=== PATIENT | female | born 1955 | race Caucasian/White ===

== ENCOUNTER 2016-09-29 09:01 | Outpatient (CLI) | payer MEDICARE | END 2016-09-29 09:02 | disposition home or self-care (01) | DX: Z00.00 Encounter for general adult medical examination without abnormal findings (principal); E55.9 Vitamin D deficiency, unspecified; E78.2 Mixed hyperlipidemia; Z79.899 Other long term (current) drug therapy ==

== ENCOUNTER 2016-10-11 09:43 | Outpatient (CLI) | payer MEDICARE | END 2016-10-11 09:44 | disposition home or self-care (01) | DX: Z12.31 Encounter for screening mammogram for malignant neoplasm of breast (principal); Z80.3 Family history of malignant neoplasm of breast ==

== ENCOUNTER 2017-10-25 09:49 | Outpatient (CLI) | payer MEDICARE ==
[2017-10-25 10:06] LABS: BASOPHILS # (AUTO) 0.1 10^3/uL (0.0-0.1); BASOPHILS % (AUTO) 1.1 %; EOSINOPHILS # (AUTO) 0.3 10^3/uL (0.0-0.7); EOSINOPHILS % (AUTO) 2.2 %; LYMPHOCYTES # (AUTO) 2.5 10^3/uL (1.5-3.5); LYMPHOCYTES % (AUTO) 21.1 %; MEAN CORPUSCULAR HEMOGLOBIN 30.8 pg (27.0-31.0); MEAN CORPUSCULAR HGB CONC 33.5 g/dL (32.0-36.0); MEAN PLATELET VOLUME 8.7 fL (7.9-10.8); MONOCYTES # (AUTO) 0.7 10^3/uL (0.0-1.0); MONOCYTES % (AUTO) 5.7 %; NEUTROPHILS # (AUTO) 8.4 10^3/uL (1.5-6.6); NEUTROPHILS % (AUTO) 69.9 %; PLT - PLATELET COUNT 283 10^3/uL (130-450); RED BLOOD COUNT 4.86 10^6/uL (4.20-5.40); RED CELL DISTRIBUTION WIDTH 13.1 % (12.0-15.0); WHITE BLOOD COUNT 11.9 x10^3/uL (4.8-10.8)
[2017-10-25 10:23] LABS: ALBUMIN 4.3 g/dL (3.2-5.5); ALBUMIN/GLOBULIN RATIO 1.4 (1.0-2.2); ALKALINE PHOSPHATASE 89 IU/L (42-121); ALT ALANINE AMINOTRANSFERASE 15 IU/L (10-60); AST ASPARTATE AMINOTRANSFERASE 22 IU/L (10-42); BILIRUBIN,TOTAL 1.2 mg/dL (0.2-1.0); BUN - BLOOD UREA NITROGEN 8 mg/dL (6-20); CARBON DIOXIDE - CO2 25 mmol/L (21-32); CHLORIDE 105 mmol/L (101-111); CHOL/HDL RATIO 3.7 (<4.4); CHOLESTEROL 248 mg/dL; GFR - MDRD 57 (>89); GLUCOSE 98 mg/dL (70-100); HDL CHOLESTEROL 67 mg/dL; LDL CHOLESTEROL,CALCULATED 159 mg/dL; LDL/HDL RATIO 2.4 (<4.4); SODIUM 138 mmol/L (135-145); TOTAL PROTEIN 7.4 g/dL (6.7-8.2); VLDL CHOLESTEROL 22 mg/dL
[2017-10-26 14:47] LABS: HEPATITIS C ANTIBODY NON-REACTIVE (NON-REACTIVE)
== END 2017-10-25 09:50 | disposition home or self-care (01) ==
LOC: LAB 09:49
PROVIDERS: ATTEND Physician Assistant Medical
DX: E55.9 Vitamin D deficiency, unspecified (principal); E78.2 Mixed hyperlipidemia; F32.9 Major depressive disorder, single episode, unspecified; Z72.89 Other problems related to lifestyle; Z79.899 Other long term (current) drug therapy
CPT/HCPCS: 36415; 80053; 80061; 82306; 83721; 84443; 85025; 86803

== ENCOUNTER 2017-10-26 11:19 | Outpatient (CLI) | payer MEDICARE ==
--- NOTE | 2017-10-27 15:15 | Mammography Report ---
DIGITAL SCREENING MAMMOGRAM: 10/26/2017 CLINICAL INDICATION: A 62-year-old with family history of breast cancer, for screening. COMPARISON: 09/2016, 01/2015, 11/2013, 04/2012, 04/2011, 03/2010. TECHNIQUE: Routine CC and MLO projections were obtained of the breasts. FINDINGS: Parenchymal tissue within both breasts is heterogeneously dense, which may lower the sensitivity of mammography; however, there are no dominant masses, suspicious microcalcifications, or secondary signs of malignancy. In comparison to the previous studies, there are no significant changes. ASSESSMENT: NO MAMMOGRAPHIC EVIDENCE OF MALIGNANCY. NO SIGNIFICANT INTERVAL CHANGES. RECOMMENDATION: Screening mammography is recommended annually. BIRADS category 1 - negative. STANDARD QUALIFYING STATEMENTS: 1. This examination was reviewed with the aid of Computed-Aided Detection (CAD). 2. A negative or benign imaging report should not delay biopsy if clinically suspicious findings are present. Consider surgical consultation if warranted. More than 5% of cancers are not identified by imaging. 3. Dense breasts may obscure an underlying neoplasm. TD: 10/27/2017 12:52
== END 2017-10-26 11:20 | disposition home or self-care (01) ==
LOC: DI 11:19
PROVIDERS: ATTEND Physician Assistant Medical
DX: Z12.31 Encounter for screening mammogram for malignant neoplasm of breast (principal); Z80.3 Family history of malignant neoplasm of breast
CPT/HCPCS: 77067

== ENCOUNTER 2017-11-02 15:02 | Outpatient (CLI) | payer MEDICARE ==
--- NOTE | 2017-11-02 17:51 | XRAY Report ---
CHEST, TWO VIEWS: 11/02/2017 HISTORY: Cough, tobacco use. COMPARISON: 03/17/2015 FINDINGS: Heart size normal. Lungs clear. No pleural effusion or pneumothorax. Negative bony structures. IMPRESSION: NEGATIVE TWO VIEW CHEST, STABLE COMPARED WITH 03/17/2015. TD: 11/02/2017 16:30
== END 2017-11-02 15:03 | disposition home or self-care (01) ==
LOC: DI 15:02
PROVIDERS: ATTEND Physician Assistant Medical
DX: R05 Cough (principal); Z87.891 Personal history of nicotine dependence
CPT/HCPCS: 71046

== ENCOUNTER 2018-05-30 08:00 | Outpatient (CLI) | payer MEDICARE ==
[2018-05-30 13:30] LABS: BASOPHILS # (AUTO) 0.1 10^3/uL (0.0-0.1); BASOPHILS % (AUTO) 1.1 %; EOSINOPHILS # (AUTO) 0.2 10^3/uL (0.0-0.7); EOSINOPHILS % (AUTO) 2.5 %; HGB - HEMOGLOBIN 15.5 g/dL (12.0-16.0); LYMPHOCYTES # (AUTO) 2.7 10^3/uL (1.5-3.5); LYMPHOCYTES % (AUTO) 29.7 %; MEAN CORPUSCULAR HGB CONC 34.3 g/dL (32.0-36.0); MEAN CORPUSCULAR VOLUME 90.4 fL (81.0-99.0); MONOCYTES # (AUTO) 0.6 10^3/uL (0.0-1.0); MONOCYTES % (AUTO) 6.2 %; NEUTROPHILS # (AUTO) 5.5 10^3/uL (1.5-6.6); NEUTROPHILS % (AUTO) 60.5 %; PLT - PLATELET COUNT 287 10^3/uL (130-450); RED BLOOD COUNT 5.01 10^6/uL (4.20-5.40); RED CELL DISTRIBUTION WIDTH 13.2 % (12.0-15.0); WHITE BLOOD COUNT 9.1 x10^3/uL (4.8-10.8)
[2018-05-30 13:46] LABS: BUN - BLOOD UREA NITROGEN 10 mg/dL (6-20); CALCIUM 9.2 mg/dL (8.5-10.3); CARBON DIOXIDE - CO2 26 mmol/L (21-32); CHLORIDE 104 mmol/L (101-111); CHOL/HDL RATIO 3.9 (<4.4); CHOLESTEROL 290 mg/dL; GFR - MDRD 57 (>89); GLUCOSE 90 mg/dL (70-100); HDL CHOLESTEROL 74 mg/dL; LDL CHOLESTEROL,CALCULATED 184 mg/dL; LDL/HDL RATIO 2.5 (<4.4); SODIUM 139 mmol/L (135-145); VLDL CHOLESTEROL 32 mg/dL
== END 2018-05-30 23:59 | disposition home or self-care (01) ==
LOC: LAB.R 08:00
PROVIDERS: ATTEND Physician Assistant Medical
DX: D72.820 Lymphocytosis (symptomatic) (principal); E78.2 Mixed hyperlipidemia; Z79.899 Other long term (current) drug therapy; N18.9 Chronic kidney disease, unspecified
CPT/HCPCS: 80048; 80061; 83721; 85025

== ENCOUNTER 2018-06-04 12:03 | Outpatient (CLI) | payer MEDICARE ==
--- NOTE | 2018-06-04 14:22 | CT Report ---
Reason: PERSONAL HISTORY OF NICOTINE DEPENDENCE Procedure Date: 06/04/2018 Accession Number: [id number] / [id number] Procedure: CT - Chest/Lung Screen Low Dose W/O CPT Code: FULL RESULT: EXAM CT LUNG SCREEN EXAM DATE: 06/04/2018 12:20 PM. HISTORY: 62-year-old patient with [id number] smoking history. Currently smoking: No. Years since quitting: Less than 1 year, smoking cessation March 2018. COMPARISON: None. TECHNIQUE: CT examination of the entire thorax without contrast was performed using low-dose technique. Thin section coronal, axial, sagittal and MIP axial images were obtained. In accordance with CT protocol optimization, one or more of the following dose reduction techniques were utilized for this exam: automated exposure control, adjustment of mA and/or KV based on patient size, or use of iterative reconstructive technique. FINDINGS: Nodules: Right upper lobe: None. Right middle lobe: None. Right lower lobe: None. Left upper lobe: None. Left lower lobe: None. Emphysema: None. Pleura: Unremarkable. Aorta: Unremarkable. Mediastinum: Unremarkable. Coronary calcifications: None. Other pulmonary findings: None. Other extrapulmonary findings: None. IMPRESSION: Lung-RADS ASSESSMENT CATEGORY: 1 - negative. Probability of malignancy: Less than 1%. RECOMMENDATION: Recommended continued low-dose CT surveillance annually based on Lung-RADS guidelines. RADIA
== END 2018-06-04 12:04 | disposition home or self-care (01) ==
LOC: DI 12:03
PROVIDERS: ATTEND Physician Assistant Medical
DX: Z12.2 Encounter for screening for malignant neoplasm of respiratory organs (principal); Z87.891 Personal history of nicotine dependence

== ENCOUNTER 2018-12-10 10:30 | Outpatient (CLI) | payer MEDICARE | END 2018-12-10 10:31 | disposition home or self-care (01) | LOC: RT 10:30 | PROVIDERS: ATTEND Internal Medicine Gastroenterology | DX: I49.3 Ventricular premature depolarization (principal); E78.5 Hyperlipidemia, unspecified | CPT/HCPCS: 93005 ==

== ENCOUNTER 2020-01-26 09:02 | Outpatient (CLI) | payer MEDICARE ==
--- NOTE | 2020-01-26 18:34 | Ultrasound Report ---
PROCEDURE: Abdomen Complete INDICATIONS: ABDOMINAL PAIN TECHNIQUE: Real-time scanning was performed of the abdominal and retroperitoneal organs, with image documentatio n. COMPARISON: Correlation is made with overlapping portions of prior CT 06/04/2018 FINDINGS: Liver: Liver is normal in size. The liver demonstrates a heterogeneous echotexture. Multiple simple appearing liver cysts are seen. The largest on the left measures 1.5 cm. The largest on the right giovani sures up to 1.1 cm. Gallbladder: No gallstones or significant sludge can be seen. The gallbladder wall does not appear th ickened. There is no specific pericholecystic fluid. The sonographic Ramirez's sign is negative. Biliary ducts: Intrahepatic bile ducts are non-dilated. Extrahepatic bile duct caliber measures 4 m m. Normal is 6-7 mm or less in diameter, or 10 mm or less post-cholecystectomy. Pancreas: Visualized portions of the pancreas are sonographically normal. Spleen: Spleen is normal in size and homogeneous in echotexture. Kidneys: Kidneys are normal in size and echotexture. Right kidney measures 10.3 cm long; left kidne y measures 11.7 cm long. No hydronephrosis or nephrolithiasis. No solid masses. At the inferior po le of the left kidney, there is a 4.2 cm simple cyst. Aorta: Visualized aorta is normal in caliber at less than 3 cm. Iliacs: Proximal common iliac arteries are normal in caliber at less than 2.5 cm. IVC: Intrahepatic inferior vena cava is patent. Miscellaneous: No free abdominal fluid. IMPRESSION: No significant abnormality is seen. For further evaluation of the pancreas, please consider a dedicated CT. Simple appearing left renal cyst and liver cysts. Heterogeneous liver echotexture, without a focal liver mass seen. The gallbladder demonstrates a normal sonographic appearance. No biliary dilatation is seen. Reviewed by: George Sevilla MD on 01/26/2020 5:32 PM AKADRIAN Approved by: George Sevilla MD on 01/26/2020 5:32 PM AKADRIAN Station ID: [id number]
== END 2020-01-26 09:03 | disposition home or self-care (01) ==
LOC: DI 09:02
PROVIDERS: ATTEND Family Medicine
DX: R10.9 Unspecified abdominal pain (principal); Q61.02 Congenital multiple renal cysts; K76.89 Other specified diseases of liver
CPT/HCPCS: 76700

== ENCOUNTER 2020-01-31 08:16 | Outpatient (CLI) | payer MEDICARE ==
--- NOTE | 2020-02-04 09:41 | Mammography Report ---
BILATERAL DIGITAL SCREENING MAMMOGRAM 3D/2D: 01/31/2020 CLINICAL: Routine screening. Family history of breast cancer. Comparison is made to exams dated: 10/26/2017 mammogram, 10/11/2016 mammogram, 02/06/2015 mammogram, mammogram, 05/17/2012 mammogram, and 05/16/2011 mammogram - [facility]. Th e tissue of both breasts is predominantly fatty. No significant masses, calcifications, or other findings are seen in either breast. There has been no significant interval change. IMPRESSION: NEGATIVE There is no mammographic evidence of malignancy. A 1 year screening mammogram is recommended. This exam was interpreted at Station ID: [id number]. NOTE: For mammograms, a report in lay terms will be sent to the patient. Approximately 15% of breast malignancies will not be visualized mammographically. In the management of a palpable breast mass, a negative mammogram must not discourage biopsy of a clinically suspicious lesion. Electronically Signed By: Roque Del Rio M.D., jr/ronald:01/31/2020 09:44:49 ACR BI-RADS Category 1: Negative 3341F PARENCHYMAL PATTERN: (F) - The breast(s) demonstrate(s) diffuse fatty replacement. BI-RADS CATEGORY: (1) - 1 RECOMMENDATION: (ANNUAL) - Recommend routine annual screening mammography. [id number] 1 year screening LATERALITY: (B)
== END 2020-01-31 08:17 | disposition home or self-care (01) ==
LOC: DI 08:16
DX: Z12.31 Encounter for screening mammogram for malignant neoplasm of breast (principal); Z80.3 Family history of malignant neoplasm of breast
CPT/HCPCS: 77063; 77067

== ENCOUNTER 2021-01-18 08:40 | Outpatient (CLI) | payer MEDICARE ==
[2021-01-18 14:48] LABS: BASOPHILS # (AUTO) 0.1 10^3/uL (0.0-0.1); BASOPHILS % (AUTO) 1.2 %; EOSINOPHILS # (AUTO) 0.3 10^3/uL (0.0-0.7); EOSINOPHILS % (AUTO) 2.8 %; HCT - HEMATOCRIT 50.4 % (37.0-47.0); HGB - HEMOGLOBIN 16.2 g/dL (12.0-16.0); LYMPHOCYTES # (AUTO) 3.4 10^3/uL (1.5-3.5); LYMPHOCYTES % (AUTO) 35.5 %; MEAN CORPUSCULAR HEMOGLOBIN 30.6 pg (27.0-31.0); MEAN CORPUSCULAR HGB CONC 32.1 g/dL (32.0-36.0); MEAN CORPUSCULAR VOLUME 95.1 fL (81.0-99.0); MEAN PLATELET VOLUME 11.3 fL (7.9-10.8); MONOCYTES # (AUTO) 0.6 10^3/uL (0.0-1.0); MONOCYTES % (AUTO) 6.2 %; NEUTROPHILS # (AUTO) 5.1 10^3/uL (1.5-6.6); NEUTROPHILS % (AUTO) 53.9 %; PLT - PLATELET COUNT 359 10^3/uL (130-450); RED CELL DISTRIBUTION WIDTH 13.2 % (12.0-15.0); WHITE BLOOD COUNT 9.5 x10^3/uL (4.8-10.8)
[2021-01-18 15:37] LABS: ALBUMIN 4.2 g/dL (3.2-5.5); ALBUMIN/GLOBULIN RATIO 1.4 (1.0-2.2); ALKALINE PHOSPHATASE 97 IU/L (42-121); ALT ALANINE AMINOTRANSFERASE 18 IU/L (10-60); AST ASPARTATE AMINOTRANSFERASE 22 IU/L (10-42); BILIRUBIN,TOTAL 0.8 mg/dL (0.2-1.0); BUN - BLOOD UREA NITROGEN 13 mg/dL (6-20); CALCIUM 8.9 mg/dL (8.5-10.3); CARBON DIOXIDE - CO2 24 mmol/L (21-32); CHLORIDE 105 mmol/L (101-111); CHOL/HDL RATIO 3.4 (<4.4); CHOLESTEROL 229 mg/dL; GFR - MDRD 56 (>89); GLUCOSE 113 mg/dL (70-100); HDL CHOLESTEROL 67 mg/dL; LDL CHOLESTEROL,CALCULATED 140 mg/dL; LDL/HDL RATIO 2.1 (<4.4); POTASSIUM 3.8 mmol/L (3.5-5.0); SODIUM 139 mmol/L (135-145); TOTAL PROTEIN 7.2 g/dL (6.7-8.2); TRIGLYCERIDES 112 mg/dL; VLDL CHOLESTEROL 22 mg/dL
== END 2021-01-18 08:41 | disposition home or self-care (01) ==
LOC: LAB.S 08:40
PROVIDERS: ATTEND Registered Nurse
DX: Z00.00 Encounter for general adult medical examination without abnormal findings (principal); E78.2 Mixed hyperlipidemia
CPT/HCPCS: 36415; 80053; 80061; 83721; 85025

== ENCOUNTER 2021-01-25 09:00 | Outpatient (CLI) | payer MEDICARE ==
--- NOTE | 2021-01-25 10:34 | CT Report ---
PROCEDURE: Low Dose Lung Cancer Screen INDICATIONS: CURRENT SMOKER TECHNIQUE: Noncontrast low-dose images were acquired from the pulmonary apices to the posterior costophrenic ang les. Multiplanar MIP reformats were then acquired. For radiation dose reduction, the following was used: automated exposure control, adjustment of mA and/or kV according to patient size. COMPARISON: None. FINDINGS: Image quality: Excellent. Lungs and pleura: 2 mm subpleural coronary nodule, left upper lobe, image 89/4. 1 mm subpleural pulm onary nodule, left upper lobe, image 91/4. 2 mm subpleural pulmonary nodule, left upper lobe, image 9 3/4. Mediastinum: Heart size is normal. No pericardial effusion. No mediastinal adenopathy by size crit eria. Thoracic aorta and central pulmonary arteries are normal in size. Esophagus is normal in jordan patel. No hiatal hernia. Bones and chest wall: No suspicious bony lesions. No vertebral body compression fractures. No axil mitzy or supraclavicular adenopathy by size criteria. The thyroid is normal in size and there are no incidental findings. Abdomen: Visualized upper abdomen solid organs and bowel loops appear normal in the absence of contr ast. IMPRESSION: 1. LungRads Category 2: Benign appearance or behavior-nodules with a very low likelihood of becoming a clinically active cancer due to size or lack of growth. Multiple tiny subpleural pulmonary nodules, left upper lobe, the largest of which measures 2 mm. 2. Annual follow-up low-dose noncontrast CT of the chest is recommended for lung cancer screening. CLINICAL RECOMMENDATION STATEMENTS: In patients <35 years with an ITN detected on CT, MRI, or extrathyroidal ultrasound, the Committee re commends further evaluation with dedicated thyroid ultrasound if the nodule is ?1 cm and has no suspi cious imaging features, and if the patient has normal life expectancy. In patients ?35 years with an ITN detected on CT, MRI, or extrathyroidal ultrasound, the Committee re commends further evaluation with dedicated thyroid ultrasound if the nodule is ?1.5 cm and has no julio picious imaging features, and if the patient has normal life expectancy. (ACR, 2014) Reviewed by: Tunde Srinivasan MD on 01/25/2021 10:32 AM PDT Approved by: Tunde Srinivasan MD on 01/25/2021 10:32 AM PDT Station ID: [id number]
--- NOTE | 2021-01-25 13:38 | XRAY Report ---
PROCEDURE: Knee 3 View BILAT INDICATIONS: CURRENT SMOKER,OSTEOARTHRITIS KNEES TECHNIQUE: 3 views of the lateral knee(s) were acquired. COMPARISON: None. FINDINGS: Bones: No fractures or dislocations. Mild to moderate bilateral tricompartmental osteoarthritis is s een slightly worse in bilateral medial femoral tibial compartments. No suspicious bony lesions. Soft tissues: Small bilateral suprapatellar joint effusion are seen. No suspicious soft tissue calci fications. IMPRESSION: Mild to moderate bilateral tricompartmental osteoarthritis more prominent in medial femo ral tibial compartment. Small bilateral joint effusion. Reviewed by: Mckinley Galvin MD on 01/25/2021 1:36 PM PDT Approved by: Mckinley Galvin MD on 01/25/2021 1:36 PM PDT Station ID: [id number]
== END 2021-01-25 09:01 | disposition home or self-care (01) ==
LOC: DI 09:00
PROVIDERS: ATTEND Registered Nurse
DX: Z12.2 Encounter for screening for malignant neoplasm of respiratory organs (principal); F17.210 Nicotine dependence, cigarettes, uncomplicated; R91.8 Other nonspecific abnormal finding of lung field; M17.0 Bilateral primary osteoarthritis of knee; M25.462 Effusion, left knee; M25.461 Effusion, right knee

== ENCOUNTER 2021-08-11 10:38 | Outpatient (CLI) | payer MEDICARE ==
--- NOTE | 2021-08-12 10:40 | Mammography Report ---
BILATERAL DIGITAL SCREENING MAMMOGRAM 3D/2D WITH EXAGGERATED CC: 08/11/2021 CLINICAL: Routine screening. Family history of breast cancer. Comparison is made to exams dated: 01/31/2020 mammogram, 10/26/2017 mammogram, and 10/11/2016 mammogram - [facility]. The tissue of both breasts is heterogeneously dense. This may lower the sensitivity of mammography. No significant masses, calcifications, or other findings are seen in either breast. There has been no significant interval change. IMPRESSION: NEGATIVE There is no mammographic evidence of malignancy. A 1 year screening mammogram is recommended. This exam was interpreted at Station ID: [id number]. NOTE: For mammograms, a report in lay terms will be sent to the patient. Approximately 15% of breast malignancies will not be visualized mammographically. In the management of a palpable breast mass, a negative mammogram must not discourage biopsy of a clinically suspicious lesion. Electronically Signed By: Samantha cheney/penrad:08/11/2021 16:30:42 ACR BI-RADS Category 1: Negative 3341F PARENCHYMAL PATTERN: (D) - The breast(s) demonstrate(s) heterogeneously dense fibroglandular kingston siddiqui. BI-RADS CATEGORY: (1) - 1 RECOMMENDATION: (ANNUAL) - Recommend routine annual screening mammography. [id number] 1 year screening LATERALITY: (B)
== END 2021-08-11 10:39 | disposition home or self-care (01) ==
LOC: DI.S 10:38
PROVIDERS: ATTEND Nurse Practitioner Family
DX: Z12.31 Encounter for screening mammogram for malignant neoplasm of breast (principal); Z80.3 Family history of malignant neoplasm of breast

== ENCOUNTER 2021-09-07 09:01 | Outpatient (CLI) | payer MEDICARE | END 2021-09-07 09:02 | disposition home or self-care (01) | LOC: LAB.S 09:01 | PROVIDERS: ATTEND Nurse Practitioner Family | DX: K21.9 Gastro-esophageal reflux disease without esophagitis (principal) | CPT/HCPCS: 81599 ==

== ENCOUNTER 2021-09-07 09:14 | Outpatient (CLI) | payer MEDICARE ==
--- NOTE | 2021-09-07 17:09 | XRAY Report ---
PROCEDURE: Shoulder 3 View RT INDICATIONS: RIGHT SHOULDER PAIN TECHNIQUE: 3 views of the shoulder were acquired. COMPARISON: None. FINDINGS: Bones: No fractures or dislocations. No suspicious bony lesions. Visualized ribs appear intact. Soft tissues: No suspicious soft tissue calcifications. IMPRESSION: No evidence acute bony abnormality of the right shoulder. If clinical suspicion and/or symptoms persist, further assessment with repeat plain films or advanced imaging (e.g., CT, MRI, or bone scan) may be helpful for further assessment. Reviewed by: Tunde Srinivasan MD on 09/07/2021 5:07 PM PDT Approved by: Tunde Srinivasan MD on 09/07/2021 5:07 PM PDT Station ID: [id number]
== END 2021-09-07 09:15 | disposition home or self-care (01) ==
LOC: DI.S 09:14
PROVIDERS: ATTEND Nurse Practitioner Family
DX: M25.511 Pain in right shoulder (principal); K21.9 Gastro-esophageal reflux disease without esophagitis
CPT/HCPCS: 81599

== ENCOUNTER 2022-02-16 10:59 | Outpatient (CLI) | payer MEDICARE ==
--- NOTE | 2022-02-16 12:20 | CT Report ---
PROCEDURE: Low Dose Lung Cancer Screen INDICATIONS: LUNG NODULES TECHNIQUE: Noncontrast low-dose axial images were acquired from the pulmonary apices to the posterior costophren ic angles. Multiplanar MIP reformats were then reconstructed. For radiation dose reduction, the follo wing was used: automated exposure control, adjustment of mA and/or kV according to patient size. COMPARISON: CT chest lung cancer screening 01/25/2021. FINDINGS: Image quality: Excellent. Images are denoted as (series #/image #). Lymph nodes: No evidence of thoracic lymphadenopathy however evaluation for mediastinal and hilar gabi nopathy is limited in the absence of intravenous contrast. Vasculature: Aorta and main pulmonary artery diameters are within normal range. Heart: No pericardial effusion. Lung parenchyma and pleura: Minimal emphysema. Nodules include: -Left upper lobe: 2 mm subpleural nodules (4/99, 102) are unchanged. -Right upper lobe: 2 mm subpleural nodule (4/110), unchanged. -Right lower lobe superior segment: 3 mm nodule (4/127), unchanged. No pleural effusion. Airways: Centrally patent. Chest wall/musculoskeletal: Multilevel degenerative change of the visualized spine. Visualized upper abdomen: Few small hepatic hypodensities, indeterminate, not substantially changed, potential cysts or hemangiomata. IMPRESSION: Lung RADS 2: Benign appearance or behavior. Recommendation: Continue annual screening with low-dose noncontrast chest CT in 12 months. Reviewed by: Lokesh Farmer MD on 02/16/2022 12:19 PM PDT Approved by: Lokesh Farmer MD on 02/16/2022 12:19 PM PDT Station ID: [id number]
== END 2022-02-16 11:00 | disposition home or self-care (01) ==
LOC: DI 10:59
PROVIDERS: ATTEND Nurse Practitioner Family
DX: Z12.2 Encounter for screening for malignant neoplasm of respiratory organs (principal); R91.8 Other nonspecific abnormal finding of lung field; Z87.891 Personal history of nicotine dependence

== ENCOUNTER 2022-08-16 13:44 | Outpatient (CLI) | payer MEDICARE ==
--- NOTE | 2022-08-16 13:07 | XRAY Report ---
PROCEDURE: Knee 4 View BILAT INDICATIONS: BILAT KNEE PAIN TECHNIQUE: 4 views of the each knee(s) were acquired. COMPARISON: Bilateral knee radiographs 01/25/2021. FINDINGS: Bones: No fractures or dislocations. Mild joint space narrowing most pronounced at the medial compar tments. There are small osteophytes. Overall not significantly changed compared to 202. Subtle scler osis at the right distal femoral shaft, unchanged. Soft tissues: Trace bilateral joint effusion. No suspicious soft tissue calcifications. IMPRESSION: Mild to moderate DJD most pronounced at the medial compartments. Overall findings are similar to 202. Reviewed by: Dionicio Waller MD on 08/16/2022 1:06 PM PDT Approved by: Dionicio Waller MD on 08/16/2022 1:06 PM PDT Station ID: [id number]
== END 2022-08-16 13:53 | disposition home or self-care (01) ==
LOC: DI.WOS 13:44
PROVIDERS: ATTEND Physician Assistant Surgical
DX: M17.0 Bilateral primary osteoarthritis of knee (principal)

== ENCOUNTER 2023-04-24 09:36 | Outpatient (CLI) | payer MEDICARE ==
--- NOTE | 2023-04-24 11:38 | MRI Report ---
PROCEDURE: KNEE WO - RT INDICATIONS: DJD RIGHT KNEE TECHNIQUE: Noncontrast sagittal PD fast spin echo and T2 fast spin echo with fat saturation, sagittal 3-D gradie nt sequence with fat saturation; coronal T1 spin echo and PD fast spin echo with fat saturation, and axial PD fast spin echo with fat saturation through the knee. COMPARISON: Bilateral knee radiograph dated 08/16/2022 and 01/25/2021. FINDINGS: Image quality: Excellent. Menisci: Oblique tear involving posterior horn of medial meniscus is seen extending to inferior artic ulating surface. The lateral meniscus is intact. The meniscal root ligaments appear intact. Cruciate ligaments: The anterior cruciate ligament appears thickened with intrasubstance T2 hyperint ense signal. The posterior cruciate ligament is intact. Medial structures: The medial collateral ligament appears mildly thickened near its femoral insertio n with adjacent soft tissue edema and fluid. Visualized portions of the pes anserinus tendons appear normal. No abnormal bursal fluid. Lateral structures: The lateral collateral ligament, long and short heads of the biceps femoris tend on appear intact. Low-grade partial-thickness tear involving popliteus tendon extending to muscular t endinous junction is seen with adjacent fluid. Iliotibial band appears normal. Anterior structures: The quadriceps and patellar tendons appear intact. Patellar alignment is valencia l. No femoral trochlear dysplasia or ventral trochlear prominence. No edema in the infrapatellar fa t pad. Bones and cartilage: Moderate tricompartmental osteoarthritis and chondromalacia is seen most notably in medial femoral tibial compartment and lateral portion of patella femoral compartment. There is si gnificant marrow edema involving anterolateral periphery of lateral femoral condyle and lateral porti on of patella without discrete fracture line. Joint space: There is moderate knee joint fluid. No Danielson's cyst. Normal appearing synovial plicae are incidentally noted. IMPRESSION: 1. Moderate tricompartmental osteoarthritis and chondromalacia most notably in medial femoral tibial compartment and lateral portion the patellofemoral compartment. Likely bony contusion involving the a nterolateral portion of lateral femoral condyle and lateral portion of patella. No fracture or disloc ation. Moderate joint effusion, no gross loose bodies. 2. Oblique tear involving posterior horn of medial meniscus extending to inferior articulating surfac e. The lateral meniscus is intact. 3. Low-grade MCL sprain. Low-grade partial-thickness involving popliteus tendon extending to muscular tendinous junction. 4. Degenerative changes involving ACL. No ACL rupture. The PCL is intact. Reviewed by: Mckinley Galvin MD on 04/24/2023 11:36 AM PST Approved by: Mckinley Galvin MD on 04/24/2023 11:36 AM PST Station ID: [id number]
== END 2023-04-24 09:37 | disposition home or self-care (01) ==
LOC: DI 09:36
PROVIDERS: ATTEND Physician Assistant Surgical
DX: M17.11 Unilateral primary osteoarthritis, right knee (principal); M94.261 Chondromalacia, right knee; M25.461 Effusion, right knee; S83.241A Other tear of medial meniscus, current injury, right knee, initial encounter; S83.411A Sprain of medial collateral ligament of right knee, initial encounter

== ENCOUNTER 2023-07-24 10:50 | Outpatient (CLI) | payer MEDICARE ==
--- NOTE | 2023-07-25 09:24 | Mammography Report ---
BILATERAL DIGITAL SCREENING MAMMOGRAM 3D/2D: 07/24/2023 CLINICAL: Routine screening. Family history of breast cancer. Comparison is made to exams dated: 08/11/2021 mammogram, 01/31/2020 mammogram, and 10/26/2017 mammogram - [facility]. Both breasts are heterogeneously dense, which may obscure small masses (category c / 51-75% glandular tissue). No significant masses, calcifications, or other findings are seen in either breast. There has been no significant interval change. IMPRESSION: NEGATIVE There is no mammographic evidence of malignancy. A 1 year screening mammogram is recommended. Based on the Tyrer Cuzick model (a risk assessment model) the patient's lifetime risk is 14.7% and he r 10 year risk is 7.2%. According to the ACR, ACS, and NCCN guidelines, an annual breast MRI exam jason ng with mammogram is recommended if the patient's lifetime risk is 20% or greater. This exam was interpreted at Station ID: [id number]. NOTE: For mammograms, a report in lay terms will be sent to the patient. Approximately 15% of breast malignancies will not be visualized mammographically. In the management of a palpable breast mass, a negative mammogram must not discourage biopsy of a clinically suspicious lesion. Electronically Signed By: Dionicio Waller M.D. [facility] [place]07/24/2023 18:30:46 ACR BI-RADS Category 1: Negative 3341F PARENCHYMAL PATTERN: (D) - The breast(s) demonstrate(s) heterogeneously dense fibroglandular kingston siddiqui. BI-RADS CATEGORY: (1) - 1 Mammogram [id number] 1 year screening LATERALITY: (B)
== END 2023-07-24 10:51 | disposition home or self-care (01) ==
LOC: DI.S 10:50
DX: Z12.31 Encounter for screening mammogram for malignant neoplasm of breast (principal); R92.333 Mammographic heterogeneous density, bilateral breasts; Z80.3 Family history of malignant neoplasm of breast

== ENCOUNTER 2023-12-25 09:41 | Outpatient (CLI) | payer MEDICARE ==
--- NOTE | 2023-12-25 13:47 | DEXA Report ---
PROCEDURE: Dexa Spine and/or Hip INDICATIONS: POST MENOPAUSAL TECHNIQUE: Dual energy x-ray absorptiometry (DXA) was performed on a Orate System. Regions measur ed are the AP Spine, femoral neck, and if needed forearm. COMPARISON: None FINDINGS: Lumbar Spine: L4 excluded due to increased density. Bone Mineral Density: 1.070 g/cm/cm,T score: -0.8. Left Forearm: Bone Mineral Density: 0.686 g/cm/cm, T score: -2.2. (T score greater or equal to -1.0: NORMAL) (T score from -1.1 to -2.4: OSTEOPENIA) (T score less than or equal to -2.5 to: OSTEOPOROSIS) Impression: By WHO criteria, this patient has low bone density (osteopenia). Patients with diagnosis of osteoporosis or osteopenia should have regular bone mineral density assess ment. For those eligible for Medicare, routine testing is allowed once every 2 years. Testing frequ ency can be increased for patients who have rapidly progressing disease or for those who are receivin g medical therapy to restore bone mass. Reviewed by: Fausto Alvarez MD on 12/25/2023 1:46 PM PDT Approved by: Fausto Alvarez MD on 12/25/2023 1:46 PM PDT Station ID: [id number]
== END 2023-12-25 09:42 | disposition home or self-care (01) ==
LOC: DI 09:41
PROVIDERS: ATTEND Nurse Practitioner Family
DX: M85.832 Other specified disorders of bone density and structure, left forearm (principal); Z78.0 Asymptomatic menopausal state